=== PATIENT | male | born 1980 | race American Indian/Alaskan Native ===

== ENCOUNTER 2019-02-12 01:33 | Emergency (ER) | payer OTHER ==
[2019-02-12] MEDS ORDERED: IBUPROFEN 600 MG TAB PO ONE (03:53)
[2019-02-12] MEDS ORDERED: ACETAMINOPHEN 500 MG TAB PO ONE (03:53)
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
[2019-02-12 05:43] VITALS: BP 132/97
== END 2019-02-12 05:43 | disposition home or self-care (01) ==
LOC: ED 01:33
DX: M54.5 Low back pain (principal); M62.830 Muscle spasm of back; V89.2XXA Person injured in unspecified motor-vehicle accident, traffic, initial encounter; Y93.89 Activity, other specified; Y92.410 Unspecified street and highway as the place of occurrence of the external cause; Y99.8 Other external cause status
CPT/HCPCS: 72100